=== PATIENT | female | born 1955 | race Caucasian/White ===

== ENCOUNTER 2019-07-25 08:46 | Outpatient (CLI) | payer MEDICARE, SELFPAY ==
--- NOTE | ~2019-07-25 | MM_ITS ---
EXAMINATION: MM screening [facility] BI w serene HISTORY: Screening mammogram TECHNIQUE: Craniocaudal and mediolateral oblique 3-D tomosynthesis images were obtained and synthetic 2-D images were generated. CAD analysis was submitted and interpreted. COMPARISON: 07/23/2018, 07/22/2017, 07/21/2016 BREAST PARENCHYMAL COMPOSITION: There are scattered areas of fibroglandular density. FINDINGS: There is no evidence of suspicious mass, calcification, or architectural distortion to sugg est malignancy in either breast. There has been no suspicious interval change. IMPRESSION: 1. No mammographic evidence of malignancy. 2. Recommend routine screening mammography in one year. BI-RADS Category 1: Negative Reviewed, dictated and finalized at location A. INSTRUCTOR
== END 2019-07-25 08:47 | disposition home or self-care (01) ==
LOC: ANHIMG 08:49
PROVIDERS: PCP Family Medicine; Visit Provider Family Medicine
DX: Z12.31 Encounter for screening mammogram for malignant neoplasm of breast (principal)
CPT/HCPCS: 77063; 77067

== ENCOUNTER 2020-07-27 08:35 | Outpatient (CLI) | payer MEDICARE, SELFPAY ==
--- NOTE | ~2020-07-27 | MM_ITS ---
EXAMINATION: MM screening [facility] w [facility] HISTORY: Screening TECHNIQUE: Craniocaudal and mediolateral oblique 3-D tomosynthesis images were obtained and synthetic 2-D images were generated. CAD analysis was submitted and interpreted. COMPARISON: Comparison to multiple prior studies sequentially, with oldest reviewed study dated 07/19. BREAST PARENCHYMAL COMPOSITION: There are scattered areas of fibroglandular density. FINDINGS: There are subtle asymmetries in the upper outer quadrant of the right breast. The left terri st is stable without evidence for malignancy. IMPRESSION: 1. Developing asymmetry upper outer quadrant of the right breast. 2. Additional mammographic views and possible breast ultrasound are recommended. BI-RADS Category 0: Incomplete: Needs additional imaging evaluation. Reviewed, dictated and finalized at location A. M SHOVEL ENGINEER IMPRESSION: 1. Developing asymmetry upper outer quadrant of the right breast. 2. Additional mammographic views and possible breast ultrasound are recommended . BI-RADS Category 0: Incomplete: Needs additional imaging evaluation.
== END 2020-07-27 08:36 | disposition home or self-care (01) ==
LOC: ANHIMG 08:39
PROVIDERS: PCP Physician Assistant; Visit Provider Family Medicine
DX: Z12.31 Encounter for screening mammogram for malignant neoplasm of breast (principal); Z78.0 Asymptomatic menopausal state
CPT/HCPCS: 77063; 77067

== ENCOUNTER 2020-08-13 13:15 | Outpatient (CLI) | payer MEDICARE, SELFPAY ==
--- NOTE | ~2020-08-13 | MMUS_ITS ---
EXAMINATION: MM diagnostic [facility] RT w serene, US breast RT limited HISTORY: Developing asymmetry reported in upper outer quadrant of right breast on July 27, 2020 s creening mammogram examination TECHNIQUE: Additional 3-D tomosynthesis images of the right breast were performed and synthetic 2-D i mages were generated. CAD analysis was submitted and interpreted. High resolution upper outer quadran t right breast ultrasound was performed. COMPARISON: July 27, 2020 bilateral digital screening mammogram FINDINGS: MAMMOGRAPHIC FINDINGS: No suspicious mass or architectural distortion or any skin thickening or retraction or malignant calc ification is identified. ULTRASOUND: No suspicious mass or shadowing is detected in the upper outer quadrant of the right breast. IMPRESSION: 1. No mammographic evidence of malignancy 2. Routine annual mammographic screening is recommended. BI-RADS Category 1: Negative Reviewed, dictated and finalized at location A. 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 No mammographic evidence of malignancy 2. Routine annual mammographic screening is recommended. BI-RADS Category 1: Negative
== END 2020-08-13 13:16 | disposition home or self-care (01) ==
LOC: ANHIMG 13:20
PROVIDERS: PCP Physician Assistant; Visit Provider Physician Assistant
DX: N63.11 Unspecified lump in the right breast, upper outer quadrant (principal)
CPT/HCPCS: 76642; 77061; 77065; G0279

== ENCOUNTER 2021-07-30 09:18 | Outpatient (CLI) | payer MEDICARE, SELFPAY ==
--- NOTE | ~2021-07-30 | MM_ITS ---
EXAMINATION: MM screening [facility] BI w [facility] HISTORY: Screening mammogram TECHNIQUE: Craniocaudal and mediolateral oblique 3-D tomosynthesis images were obtained and synthetic 2-D images were generated. CAD analysis was submitted and interpreted. COMPARISON: 08/13/2020 diagnostic right mammogram and limited right breast ultrasound 07/27/2020 bilateral screening mammogram 07/25/2019 bilateral screening mammogram BREAST PARENCHYMAL COMPOSITION: There are scattered areas of fibroglandular density. FINDINGS: There is no evidence of suspicious mass, calcification, or architectural distortion to sugg est malignancy in either breast. There has been no suspicious interval change. IMPRESSION: 1. No mammographic evidence of malignancy. 2. Recommend routine screening mammography in one year. BI-RADS Category 1: Negative Reviewed, dictated and finalized at location A. AGE PICK UP MAN
== END 2021-07-30 09:19 | disposition home or self-care (01) ==
LOC: ANHIMG 09:20
PROVIDERS: PCP Family Medicine; Visit Provider Family Medicine
DX: Z12.31 Encounter for screening mammogram for malignant neoplasm of breast (principal)
CPT/HCPCS: 77063; 77067

== ENCOUNTER 2022-10-13 07:58 | Outpatient (CLI) | payer MEDICARE, SELFPAY ==
--- NOTE | ~2022-10-13 | MM_ITS ---
EXAMINATION: MM screening [facility] BI w serene HISTORY: Screening mammogram TECHNIQUE: Craniocaudal and mediolateral oblique 3-D tomosynthesis images were obtained and synthetic 2-D images were generated. CAD analysis was submitted and interpreted. COMPARISON: 07/30/2021, 08/13/2020, 07/27/2020 BREAST PARENCHYMAL COMPOSITION: There are scattered areas of fibroglandular density. FINDINGS: No suspicious mass, calcification, or architectural distortion are identified in either gladys ast to suggest malignancy. There has been no suspicious interval change. IMPRESSION: 1. No mammographic evidence of malignancy. 2. Recommend routine screening mammography in one year. BI-RADS Category 1: Negative Reviewed, dictated and finalized at location A.
== END 2022-10-13 07:59 | disposition home or self-care (01) ==
PROVIDERS: PCP Family Medicine; Visit Provider Family Medicine
DX: Z12.31 Encounter for screening mammogram for malignant neoplasm of breast (principal)
CPT/HCPCS: 77063; 77067

== ENCOUNTER 2023-10-24 08:07 | Outpatient (CLI) | payer MEDICARE, SELFPAY ==
--- NOTE | ~2023-10-24 | MM_ITS ---
EXAMINATION: MM screening [facility] BI w serene HISTORY: Screening TECHNIQUE: Craniocaudal and mediolateral oblique 3-D tomosynthesis images were obtained and synthetic 2-D images were generated. CAD analysis was submitted and interpreted. COMPARISON: Comparison to multiple prior studies sequentially, with oldest reviewed study dated 07/23. BREAST PARENCHYMAL COMPOSITION: Not dense: There are scattered areas of fibroglandular density. FINDINGS: There is no evidence of suspicious mass, calcification, or architectural distortion to sugg est malignancy in either breast. There has been no suspicious interval change. IMPRESSION: 1. No mammographic evidence of malignancy. 2. Recommend routine screening mammography in one year. BI-RADS Category 1: Negative Reviewed, dictated and finalized at location A.
== END 2023-10-24 08:08 | disposition home or self-care (01) ==
PROVIDERS: PCP Family Medicine; Visit Provider Family Medicine
DX: Z12.31 Encounter for screening mammogram for malignant neoplasm of breast (principal)
CPT/HCPCS: 77063; 77067

== ENCOUNTER 2024-11-14 08:10 | Outpatient (CLI) | payer MEDICARE, SELFPAY ==
--- NOTE | ~2024-11-14 | MM_ITS ---
EXAMINATION: MM screening cortney BI w serene HISTORY: Screening TECHNIQUE: Craniocaudal and mediolateral oblique 3-D tomosynthesis images were obtained and synthetic 2-D images were generated. CAD analysis was submitted and interpreted. COMPARISON: Comparison to multiple prior studies sequentially, with oldest reviewed study dated 07/25. BREAST PARENCHYMAL COMPOSITION: Not dense: There are scattered areas of fibroglandular density. FINDINGS: There is no evidence of suspicious mass, calcification, or architectural distortion to sugg est malignancy in either breast. There has been no suspicious interval change. IMPRESSION: 1. No mammographic evidence of malignancy. 2. Recommend routine screening mammography in one year. BI-RADS Category 1: Negative Reviewed, dictated and finalized at location B.
--- OUTSIDE RECORDS SUMMARY | 2024-11-14 08:19 | XMS_ITS | Clinical Summary ---
Author Organization [facility] [place] [address] Address [address] [place] [address] Care Team Providers Care Wax Pot Tender Name Role Phone Heron Gutierrez MD Primary Care Provider [phone] Allergies Active Allergy Reactions Criticality Noted Date Comments Meperidine Shortness of breath High 06/11/2021 Fentanyl Shortness of breath,Redness High 06/11/19 22 Penicillins Rash,Blisters High 06/11/2021 Hydrocodone-Acetaminophen Itching,Halluc inations,Vomi ting Medium 06/11/2021 Medications calcium citrate/vitamin D3 (CITRACAL-D3 PETITES ORAL) Take 1 Caplet by mouth daily Active magnesium oxide 400 mg magnesium capsule Take 1 capsule by mouth daily Active citalopram (CeleXA) 10 mg tablet Take 1 tablet (10 mg total) by mouth daily 90 tablet 4 4 01/22/20 25 Active diphenhydrAMINE-vianney taminophen (acetaminophen PM) 25-500 mg tablet Take 2 tablets by mouth every evening Active CALCIUM CARB-VITAMIN D3-VIT K2 ORALIndications:Res tless Legs Take 1 tablet by mouth daily Vitamin K2 - 100mcg, Vitamin D3 - 25mcg (1,000IU), Calcium - 34mg Active hydroCHLOROthiazide 12.5 mg tablet TAKE 1 TABLET BY MOUTH EVERY DAY 90 tablet 4 5 Active telmisartan (MICARDIS) 40 mg tabletIndications:H ypertension, essential TAKE 1 TABLET BY MOUTH EVERY DAY 100 tablet 1 5 Active atorvastatin (LIPITOR) 10 mg tabletIndications:M ixed hyperlipidemia TAKE 1 TABLET BY MOUTH EVERY DAY 100 tablet 1 5 Active ergocalciferol (VITAMIN D) 50,000 unit capsuleIndications: Vitamin D deficiency TAKE 1 CAPSULE BY MOUTH ONE TIME PER WEEK 12 capsule 1 5 Active Active Problems Problem Noted Date Diagnosed Date Decreased GFR 05/26/2024 Assessment & Plan (05/26/2024 2:53 PM PRODUCT TEST ENGINEER): Patient reports she has been drinking a lot more Pepsi than she typically does, drinking very little water. Blood pressure is well controlled, she denies regular use of NSAIDs. GFR decreased some, creatinine = 1.19. Recommended increasing her intake soda. Plan to repeat lab work continue to monitor. Class 1 obesity due to exces s calories with serious comorbidity and body mass index (BMI) of 30.0 to 30.9 in adult 05/26/2024 Assessment & Plan (05/26/2024 2:53 PM PRODUCT TEST ENGINEER): Encouraged regular exercise and increase daily activity such as walking. Situational anxiety 01/22/2024 Assessment & Plan (05/26/2024 2:50 PM PRODUCT TEST ENGINEER): Patient reports significant benefit in moods with use of citalopram. Does not feel that dosage needs to be adjusted at this time. Unfortunately her close friend recently unexpectedly, patient feels she is managing well at this time. Will continue to monitor. Patient is aware to reach out with any concerns. Assessment & Plan (01/22/2024 10:12 AM CDT): Patient with significant stressors, dealing with brother's recent diagnosis of cancer. Feeling increased anxiety during the day and having a difficult time sleeping. Will start citalopram 10 daily, reviewed medication side effects and scheduling. Like to have patient follow-up in office in 12 weeks, can check back in the next 6 weeks if no response to medication. She denies any depressive symptoms. RLS (restless legs syndrome) 06/15/2023 Assessment & Plan (06/15/2023 10:12 AM PRODUCT TEST ENGINEER): Patient would like to try to avoid medications if possible. Recommended she increase exercise, discussed importance drinking plenty of water. Will trial magnesium supplement or [place] leg cramps supplement nightly. May benefit from increasing exercise and warm Epson salt baths as well. Discussed trying Requip if no improvement in the next 6 weeks or so Encounter for osteoporosis s creening in asymptomatic postmenopausal patient 06/15/2023 Assessment & Plan (06/15/2023 10:11 AM PRODUCT TEST ENGINEER): Reviewed previous DEXA completed 2018. Discussed calcium and vitamin-D recommendations with patient. DEXA ordered today, patient aware to call and schedule this. Herpes zoster without complication 05/14/2023 Assessment & Plan (05/14/2023 9:58 AM PRODUCT TEST ENGINEER): Healing. Discussed Shingrix vaccination in the future. Discussed RTC for any recurrent symptoms. She is agreeable and states understanding. Colonoscopy refused 01/08/2023 Assessment & Plan (01/22/2024 10:12 AM CDT): Declines screening Assessment & Plan (01/08/2023 5:44 PM CDT): States he has Cologuard at home as she is not interested in completing Cologuard or a screening colonoscopy. Osteopenia of multiple sites 06/12/2022 Assessment & Plan (06/12/2022 8:31 AM PRODUCT TEST ENGINEER): Prescribed prolia weekly for osteopenia. She frequently forgets to take this. Encounter for annual wellness exam in Medicare p atient 06/11/2021 Assessment & Plan (06/15/2023 10:13 AM PRODUCT TEST ENGINEER): Preventative exam, reviewed screenings and vaccinations. DEXA ordered today. Patient declines C scope. Assessment & Plan (06/12/2022 8:44 AM PRODUCT TEST ENGINEER): Preventive exam; reviewed recommended preventive screenings and vaccinations. Encourage annual flu vaccine. Wear sunscreen/protective clothing when outdoors. Assessment & Plan (06/11/2021 10:17 AM PRODUCT TEST ENGINEER): Will request records of mammogram, dexa, lung ct, and c-scope. Preventive exam; reviewed recommended preventive screenings and vaccinations. Encourage annual flu vaccine. Wear sunscreen/protective clothing when outdoors. Mixed hyperlipidemia 06/11/2021 Assessment & Plan (06/15/2023 10:13 AM PRODUCT TEST ENGINEER): Patient is taking atorvastatin 10 mg daily as prescribed, cholesterol is well controlled, no changes made today. Assessment & Plan (05/14/2023 9:57 AM PRODUCT TEST ENGINEER): Tolerating statin without side effects. Will have fasting lipid panel prior to next appointment. Assessment & Plan (01/08/2023 5:24 PM CDT): Continue atorvastatin 10 mg daily. Ordered labs today, will make additional changes as needed. Assessment & Plan (06/12/2022 8:32 AM PRODUCT TEST ENGINEER): Doing well on atorvastatin 10 mg daily. Will repeat labs and make adjustments as needed. Assessment & Plan (06/11/2021 10:13 AM PRODUCT TEST ENGINEER): Will check fasting labs. Taking atorvastatin 10 mg daily without change. Tobacco use 06/11/2021 Assessment & Plan (05/14/2023 9:57 AM PRODUCT TEST ENGINEER): Highly encouraged cutting back on tobacco use. Pre contemplative. Assessment & Plan (01/08/2023 5:23 PM CDT): Again encouraged complete cessation. Assessment & Plan (06/11/2021 10:15 AM PRODUCT TEST ENGINEER): Taking wellbutrin x 3 days, discussed plan to quit smoking such as decreasing daily amount smoked by 1 cigarette per week. Reviewed NRT options. Hypertension, essential 06/11/2021 Assessment & Plan (05/26/2024 2:50 PM PRODUCT TEST ENGINEER): Blood pressure is well controlled; continue present management with telmisartan 40 mg daily Assessment & Plan (01/22/2024 10:13 AM CDT): Reviewed home blood pressure readings/machine, blood pressure is generally well controlled with 2-3 elevated readings. Increase BP related to stress. No changes to current medication regimen. Continue telmisartan 40 mg daily and hydrochlorothiazide 12.5 mg daily. Continue to monitor. She denies any chest pain, headaches, shortness for breath or palpitations. Assessment & Plan (06/15/2023 10:12 AM PRODUCT TEST ENGINEER): Blood pressure is well controlled, patient states that she has been fatigued over the past few weeks and she is not sure this could be attributed to her hydrochlorothiazide which is new. She is also not been sleeping well with restless legs. Recommended continuing current regimen with telmisartan 40 mg daily and hydrochlorothiazide 12.5 mg daily and continuing to monitor for now. Assessment & Plan (05/14/2023 9:57 AM PRODUCT TEST ENGINEER): Normotensive today. Hold chlorthalidone. Continue telmisartan. Monitor blood pressure daily at home. She has follow-up in less than 1 month to re-evaluate. Red flags reviewed for the interim. She is agreeable with plan states understanding. Assessment & Plan (01/08/2023 5:43 PM CDT): Not at goal; discrepancy in patient's home BP cuff and manual blood pressure check today, patient plans to buy a new blood pressure cuff. Continue telmisartan 40 mg daily and will add chlorthalidone 12.5 mg tablet once daily. Reviewed blood pressure goal of systolic less than 130. Assessment & Plan (06/12/2022 8:14 AM PRODUCT TEST ENGINEER): Blood pressure well controlled on telmisartan, no changes made today. Assessment & Plan (06/11/2021 10:15 AM PRODUCT TEST ENGINEER): BP well controlled on current regimen, reviewed BP goal of <140/80. No changes at this time. Continue efforts to improve diet and exercise. Ingrown hair 06/11/2021 Assessment & Plan (06/11/2021 10:14 AM PRODUCT TEST ENGINEER): Advised warm moist compresses to area and apply thin layer of ointment TID. Avoid picking/popping area. Follow up if worsening redness/swelling/pain. Reviewed s/s of infection. BMI 29.0-29.9,adult 06/11/2021 Assessment & Plan (05/14/2023 9:57 AM PRODUCT TEST ENGINEER): Weight is stable. Assessment & Plan (01/08/2023 5:43 PM CDT): Discussed healthy diet and importance of regular physical activity. Assessment & Plan (06/12/2022 8:14 AM PRODUCT TEST ENGINEER): Discussed healthy diet and importance of regular physical activity. Assessment & Plan (06/11/2021 10:13 AM PRODUCT TEST ENGINEER): Discussed healthy diet and importance of regular physical activity. Refused influenza vaccine 06/11/2021 Refused pneumococcal vaccination 06/11/2021 Immunizations Immunization Administration Dates Next Due HPV, Unspecified 06/12/2022(Deferred: Patient Refused),03/08/2021(Deferred: Patient Refused) Influenza, Unspecified 05/26/2024(Deferr ed: Patient Refused),06/15/2023(Deferred: Patient Refused),05/14/2023(Deferred: Patient Refused),03/08/2023(Deferred: Patient Refused),02/06/2023(Deferred: Patient Refused),03/08/2022(Deferred: Patient Refused),03/08/2022(Deferred: Patient Refused),02/06/2022(Deferred: Patient Refused),06/11/2021(Deferred: Patient Refused),03/08/2021(Deferred: Patient Refused),03/08/2021(Deferred: Patient Refused) Pneumococcal Conjugate Pcv20 01/22/2024( Deferred: Patient Refused),05/14/2023(Deferred: Patient Refused) Surgical History Surgery Date Site/Laterality Comments CHOLECYSTECTOMY HYSTERECTOMY APPENDECTOMY Family History Medical History Relation Name Comments Lung cancer Brother 1 Hossein COD Neuroendocrine Tumor Brother 3 Jeremiah Lung cancer Father COD Leukemia Father's Brother 1 Jimmie Lung cancer Father's Brother 2 Alvaro No Known Problems Father's Sister 1 Amrita No Known Problems Father's Sister 2 Meseret No Known Problems Father's Sister 3 Maxine Diabetes Father's Sister 4 Rebeka No Known Problems Father's Sister 5 Elmie Heart attack Maternal Grandfather Heart failure Maternal Grandmother Dementia Mother Asbestosis Mother's Brother Cancer Mother's Brother Pancreatic cancer Paternal Grandfather Early Sister Murdered at 55 - 56 Bipolar disorder Son 1 Martínez Depression Son 1 Martínez Diabetes Son 1 Martínez No Known Problems Son 2 Rashard Relation Name Status Comments Brother 1 Hossein Brother 2 Hi Alive Brother 3 Jeremiah Alive Father Father's Brother 1 Jimmie Father's Brother 2 Alvaro Father's Sister 1 Amrita Father's Sister 2 Meseret Father's Sister 3 Maxine Father's Sister 4 Rebeka Father's Sister 5 Elmie Maternal Grandfather Maternal Grandmother Mother Mother's Brother Paternal Grandfather Paternal Grandmother Sister Son 1 Martínez Alive Son 2 Rashard Alive Social History Tobacco Use Types Packs/Day Years Used Date Smoking Tobacco: Every Day Cigarettes 0.5 46 Smokeless Tobacco: Never Tobacco Cessation:Ready to Q uit: Not Asked; Counseling Given: Not Answered AUDIT-C Answer Date Recorded Q1: How often do you have a drink containing alc ohol? 2-3 times a week 05/14/2023 Q2: How many drinks containi ng alcohol do you have on a typical day when you are drinking? 1 or 2 05/14/2023 Q3: How often do you have si x or more drinks on one occasion? Never 05/14/2023 PHQ-2 Answer Date Recorded PHQ-2 Total Score (If total score is 3 or more points, staff should administer the PHQ-9) 1 05/26/2024 Comments Unknown Sex and Gender Information Value Date Recorded Sex Assigned at Not on file Legal Sex Female 7:54 AM PRODUCT TEST ENGINEER Gender Identity Not on file Sexual Orientation Not on file Obstetrics History Last Filed Vital Signs Vital Sign Reading Time Taken Comments Blood Pressure 122/84 05/26/2024 12:40 PM PRODUCT TEST ENGINEER Pulse 58 05/26/2024 12:40 PM PRODUCT TEST ENGINEER Temperature 36.6 C (97.9 F) 05/26/2024 12:40 PM PRODUCT TEST ENGINEER Respiratory Rate 18 05/26/2024 12:40 PM PRODUCT TEST ENGINEER Oxygen Saturation 97% 05/26/2024 12:40 PM PRODUCT TEST ENGINEER Inhaled Oxygen Concentration - - Weight 81.6 kg (180 lb) 05/26/2024 12:40 PM PRODUCT TEST ENGINEER Height 163.7 cm (5' 4.45) 05/26/2024 12:[address] Body Mass Index 30.47 05/26/2024 12:40 PM PRODUCT TEST ENGINEER Plan of Treatment Health Maintenance Due Date Last Done Comments Colon Cancer Screening-Colonoscopy 1955 Hepatitis C Screening 1955 DTaP/Tdap/Td Vaccine (1 - Tdap) 1964 Hepatitis B Screening 1971 Pneumococcal vaccine 65+ (1 of 2 - PCV) 1972 Zoster Vaccine (1 of 2) 2003 Lung Cancer Screening 03/07/2020 03/07/2019 Covid-19 Vaccine (3 - 2023-2 5 season) 2024 12/10/2020, 11/19/2020 Well Visit 65+ 06/15/2024 06/15/2023, 10/2022, 06/11/2021 Breast Cancer Screening-Mammogram 10/23/2024 10/24/2023, 10/13/2022, 07/30/2021, Additional history exists Influenza Vaccine (Season Ended) 2025 Depression Screening 05/26/2025 05/26/2024, 06/15/2023, 01/08/2023, Additional history exists Fall Risk Assessment 05/26/2025 05/26/2024, 06/15/2023, 05/14/2023, Additional history exists Osteoporosis Screening-Bone Density Scan 07/06/2025 07/06/2023, 01/29/2019 Procedures Procedure Name Priority Date/Time Associated Diagnosis Comments SCREENING MAMMOGRAM Schedule Routine, Read Routine (OP Routine) 10/24/2023 DEXA AXIAL SKELETON BONE DENSITY 1 OR MORE SITES Schedule Routine, Read Routine (OP Routine) 07/06/2023 8:49 AM PRODUCT TEST ENGINEER Osteopenia of multiple sites HM LUNG CANCER SCREENING Routine 03/07/2019 from Last 3 Months or Most Recently Relevant to Health Maintenance Results * Screening Mammogram (10/24/2023) Anatomical Region Laterality Modality Breast N/A Mammography us Historical Provider MD GUSTAFSON MAMMO PROCEDURES Alyssia l Result * Dexa Axial Skeleton Bone Density 1 Or 2 Site (07/06/2023 8:49 AM PRODUCT TEST ENGINEER) Anatomical Region Laterality Modality Body N/A Other 07/06/2023 6:27 PM PRODUCT TEST ENGINEER Narrative 07/06/2023 6:28 PM PRODUCT TEST ENGINEER EXAM DESCRIPTION: DEXA AXIAL SKELETON BONE DENSITY 1 OR MORE SITES REASON FOR STUDY: 67 y/o year old F with given history of: post-menopausal osteoporosis prevention screening 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 REFERENCE: Bone mineral density: Normal (T-score above or = -1.0) Low bone mass (T-score between -1.0 and -2.5) replaces the previously used term osteopenia Osteoporosis (T-score = or below -2.5) Please see below follow up recommendations. Medical evaluation for secondary causes of low bone mineral density may be appropriate. FRAX is a World Health Organization validated fracture risk assessment tool that calculates a person's 10 year probability of a major osteoporosis related fracture and hip fracture. According to the National Osteoporosis Foundation guidelines, postmenopausal women and men age 50 or older with low bone mass and a 10 year probability of a major osteoporosis related fracture = or greater than 20% or a 10 year probability of a hip fracture = or greater than 3% should be considered for pharmacological treatment for the prevention of osteoporosis. For further information, including treatment recommendations, please refer to the 2019 ISCD Official Positions (http://www.iscd.org) and the NOF's Clinician's Guide to Prevention and Treatment of Osteoporosis (http://www.nof.org/professionals/clinical-guidelines) THIS IS AN ELECTRONICALLY VERIFIED FINAL REPORT 07/06/2023 6:28 PM - Electronically signed by Rajiv Monet M.D. 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 REFERENCE: Bone mineral density: Normal (T-score above or = -1.0) Low bone mass (T-score between -1.0 and -2.5) replaces thepreviously used term osteopenia Osteoporosis (T-score = or below -2.5) Please see below follow up recommendations. Medical evaluation forsecondary causes of low bone mineral density may be appropriate. FRAX is a World Health Organization validated fracture risk assessmenttool that calculates a person's 10 year probability of a major osteoporosisrelated fracture and hip fracture. According to the National OsteoporosisFoundation guidelines, postmenopausal women and men age 50 or older with low bonemass and a 10 year probability of a major osteoporosis related fracture = or greater than 20% or a 10 year probability of a hip fracture = or greaterthan 3% should be considered for pharmacological treatment for the preventionof osteoporosis. For further information, including treatment recommendations, please referto the 2019 ISCD Official Positions (http://www.iscd.org) and the NOF's Clinician's Guide to Prevention and Treatment of Osteoporosis (http://www.nof.org/professionals/clinical-guidelines) THIS IS AN ELECTRONICALLY VERIFIED FINAL REPORT 07/06/2023 6:28 PM - Electronically signed by Rajiv Monet M.D. MF: [email or web address] Report ID: [id number] Reading Location: [place] [address] Lisbeth Johnson NP IMG DXA PROCEDURES Final Re sult * LUNG CANCER SCREENING (03/07/2019) Historical Provider HEALTH MAINTENANCE Final Result from Last 3 Months or Most Recently Relevant to Health Maintenance Insurance MEDICARE ADVANTAGE [facility] MEDICARE Address: [facility] [address] [place] [address] [employer] MEDICARE ADVANTAGE Care Teams Wax Pot Tender Relationship Specialty Start Date End Date Heron Gutierrez MD [address] [place] [address] PCP - General Family Medicine 05/22/21
--- OUTSIDE RECORDS SUMMARY | 2024-11-14 08:19 | XMS_ITS | Encounter Summary ---
Author Organization [facility] Address [address] [facility] [place] [address] Care Team Providers Care Papeterie Table Assembler Name Role Phone Unavailable Primary Care Provider Unavailabl e Encounter Details Date Type Department Care Team (Late st Contact Info) Description 02/09/2018 Lab Requisition [facility] DermPath Lab [address] 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 Gender Identity Not on file Sexual Orientation Not on file documented as of this encounter Plan of Treatment Not on file documented as of this encounter Procedures Procedure Name Priority Date/Time Associated Diagnosis Comments DERMATOPATHOLOGY Routine 02/09/2018 12:0 0 AM CDT documented in this encounter Results * DERMATOPATHOLOGY (02/09/2018 12:00 AM CDT) Case Report Dermatopathology Report Case: [id number] Authorizing Provider: Darien Zamora MD Collected: 02/09/2018 12:00 AM Pathologist: Emily Child MD Received: 02/09/2018 12:32 PM Specimen: Skin, left lateral leg 8 3:34 PM CDT DERMATOPATHOLOGY LABORATORY Final Diagnosis Specimen A. SKIN, left lateral leg: ACTINIC KERATOSIS, ERODED, EXTENDING TO THE BASE OF THE SPECIMEN (L57.0) (see microscopic description and comment) STASIS DERMATITIS (L30.8) 8 3:34 PM CDT DERMATOPATHOLOGY LABORATORY at 1534 CDT Clinical History AK R/O BCC. 3:34 PM CDT DERMATOPATHOLOGY LABORATORY Gross Description Specimen A: Received is one formalin filled container labeled with the patient's name and designated left lateral leg. The specimen consists of a shave biopsy measuring [id number]. Jar 0. 3:34 PM CDT DERMATOPATHOLOGY LABORATORY Microscopic Description Specimen A. SKIN, left lateral leg: There is alternating orthokeratosis and parakeratosis. The epidermis is focally eroded. Along the undersurface of the epidermis, there are buds of atypical keratinocytes in a disorderly arrangement. This process extends to the base of the specimen.There is focal spongiosis. The dermis shows a sparse, perivascular lymphocytic infiltrate surrounding dilated, thick-walled vessels, which are increased in number. COMMENT: A squamous cell carcinoma cannot be ruled out. 3:34 PM CDT DERMATOPATHOLOGY LABORATORY Disclaimer An external and internal positive and negative controls are appropriate for the histochemical, immunohistochemical and immunofluorescence stain(s) in this case (if any), except where stated explicitly. The performance characteristics of the stain(s) cited in this report were developed and its performance characteristic determined by the Dermatopathology Laboratory at [facility]. These tests need not be, and therefore are not, approved by the [place] Food and Drug Administration. The tests are used for clinical purposes. Billing Codes Specimen Charges Stain Charges 63348 1 3:34 PM CDT DERMATOPATHOLOGY LABORATORY Embedded Images 3:34 PM CDT DERMATOPATHOLOGY LABORATORY Pathology/Cytolog y TISSUE SPECIMEN FROM SKIN / Unknown 02/09/2018 02/09/2018 12:32 PM CDT Darien Zamora MD LAB - PATHOLOGY/CYTOLOGY ORDERA BLES Final Result DERMATOPATHOLOGY LABORATORY [facility] - Department of Dermatology [facility] [facility] [place] [address], [facility] [place] [phone] documented in this encounter Visit Diagnoses Not on filedocumented in this encounter
--- OUTSIDE RECORDS SUMMARY | 2024-11-14 08:19 | XMS_ITS | Referral Summary ---
Author [place] [facility] [place] [address] Address [address] [place] [address] Care Team Providers Care Public Health Nutritionist Name Role Phone Heron Gutierrez MD Primary Care Provider [phone] Allergies Active Allergy Reactions Criticality Noted Date [...] 05/26/2024 Assessment & Plan (05/26/2024 2:53 PM PROMOTIONS ASSISTANT [employer]ET[employer]): Patient reports she has been drinking a [...] 05/26/2024 Assessment & Plan (05/26/2024 2:53 PM [employer]OMOTIONS ASSISTANT [employer]): Encouraged regular exercise and increase daily activity such as walking. Situational anxiety 01/22/2024 Assessment & Plan (05/26/2024 2:50 PM [employer]OMOTIONS ASSISTANT [employer]): Patient reports significant benefit in moods with [...] 06/15/2023 Assessment & Plan (06/15/2023 10:12 AM PROMOTIONS ASSISTANT [employer]ET[employer]): Patient would like to try to avoid medications if possible. Recommended she increase exercise, discussed importance drinking plenty of water. Will trial magnesium supplement or Percy leg cramps supplement nightly. May benefit from increasing exercise and warm Epson salt baths as well. Discussed trying Requip if no improvement in the next 6 weeks or so Encounter for osteoporosis s creening in asymptomatic postmenopausal patient 06/15/2023 Assessment & Plan (06/15/2023 10:11 AM PROMOTIONS ASSISTANT [employer]): Reviewed previous DEXA completed 2018. Discussed calcium and vitamin-D recommendations with patient. DEXA ordered today, patient aware to call and schedule this. Herpes zoster without complication 05/14/2023 Assessment & Plan (05/14/2023 9:58 AM PROMOTIONS ASSISTANT [employer]): Healing. Discussed Shingrix vaccination in the future. [...] 06/12/2022 Assessment & Plan (06/12/2022 8:31 AM [employer]OT[employer] ASSIST[employer]): Prescribed prolia weekly for osteopenia. She frequently forgets to take this. Encounter for annual wellness exam in Medicare p atient 06/11/2021 Assessment & Plan (06/15/2023 10:13 AM PROMOTIONS ASSISTANT [employer]ETING): Preventative exam, reviewed screenings and vaccinations. DEXA ordered today. Patient declines C scope. Assessment & Plan (06/12/2022 8:44 AM [employer]OMOTIONS ASSISTANT [employer] MARKETING): Preventive exam; reviewed recommended preventive screenings and vaccinations. Encourage annual flu vaccine. Wear sunscreen/protective clothing when outdoors. Assessment & Plan (06/11/2021 10:17 AM [employer]OTIONS ASSISTANT [employer]): Will request records of mammogram, dexa, lung ct, and c-scope. Preventive exam; reviewed recommended preventive screenings and vaccinations. Encourage annual flu vaccine. Wear sunscreen/protective clothing when outdoors. Mixed hyperlipidemia 06/11/2021 Assessment & Plan (06/15/2023 10:13 AM [employer]OMOT[employer] ASSIST[employer]): Patient is taking atorvastatin 10 mg daily as prescribed, cholesterol is well controlled, no changes made today. Assessment & Plan (05/14/2023 9:57 AM [employer] ASSIST[employer]): Tolerating statin without side effects. Will have fasting lipid panel prior to next appointment. Assessment & Plan (01/08/2023 5:24 PM CDT): Continue atorvastatin 10 mg daily. Ordered labs today, will make additional changes as needed. Assessment & Plan (06/12/2022 8:32 AM [employer]OMOTIONS ASSISTANT [employer]): Doing well on atorvastatin 10 mg daily. Will repeat labs and make adjustments as needed. Assessment & Plan (06/11/2021 10:13 AM [employer]OMOTIONS ASSISTANT [employer]ETING): Will check fasting labs. Taking atorvastatin 10 mg daily without change. Tobacco use 06/11/2021 Assessment & Plan (05/14/2023 9:57 AM PROMOTIONS ASSISTANT SAL[employer] MARKETING): Highly encouraged cutting back on tobacco use. Pre contemplative. Assessment & Plan (01/08/2023 5:23 PM CDT): Again encouraged complete cessation. Assessment & Plan (06/11/2021 10:15 AM [employer]OT[employer] ASSISTANT [employer]ETING): Taking wellbutrin x 3 days, discussed plan to quit smoking such as decreasing daily amount smoked by 1 cigarette per week. Reviewed NRT options. Hypertension, essential 06/11/2021 Assessment & Plan (05/26/2024 2:50 PM [employer] ASSIST[employer]): Blood pressure is well controlled; continue present [...] palpitations. Assessment & Plan (06/15/2023 10:12 AM [employer]OMOT[employer] ASSIST[employer]): Blood pressure is well controlled, patient states [...] now. Assessment & Plan (05/14/2023 9:57 AM [employer]OMOTIONS ASSISTANT [employer]): Normotensive today. Hold chlorthalidone. Continue telmisartan. Monitor [...] 130. Assessment & Plan (06/12/2022 8:14 AM [employer]OMOT[employer] ASSIST[employer]): Blood pressure well controlled on telmisartan, no changes made today. Assessment & Plan (06/11/2021 10:15 AM [employer]OT[employer] ASSIST[employer]): BP well controlled on current regimen, reviewed BP goal of <140/80. No changes at this time. Continue efforts to improve diet and exercise. Ingrown hair 06/11/2021 Assessment & Plan (06/11/2021 10:14 AM [employer]OMOT[employer] ASSISTANT [employer]ETING): Advised warm moist compresses to area and apply thin layer of ointment TID. Avoid picking/popping area. Follow up if worsening redness/swelling/pain. Reviewed s/s of infection. BMI 29.0-29.9,adult 06/11/2021 Assessment & Plan (05/14/2023 9:57 AM [employer] ASSIST[employer]): Weight is stable. Assessment & Plan (01/08/2023 5:43 PM CDT): Discussed healthy diet and importance of regular physical activity. Assessment & Plan (06/12/2022 8:14 AM [employer]OT[employer] ASSIST[employer]): Discussed healthy diet and importance of regular physical activity. Assessment & Plan (06/11/2021 10:13 AM [employer]OT[employer] ASSIST[employer]): Discussed healthy diet and importance of regular [...] Pcv20 01/22/2024( Deferred: Patient Refused),05/14/2023(Deferred: Patient Refused) Social History Tobacco Use Types Packs/Day Years [...] on file Legal Sex Female 7:54 AM [employer]OTIONS ASSIST[employer] Gender Identity Not on file Sexual Orientation Not on file Last Filed Vital Signs Vital Sign Reading Time Taken Comments Blood Pressure 122/84 05/26/2024 12:40 PM [employer] Pulse 58 05/26/2024 12:40 PM [employer] Temperature 36.6 C (97.9 F) 05/26/2024 12:40 PM [employer] Respiratory Rate 18 05/26/2024 12:40 PM [employer] ASS[employer] Oxygen Saturation 97% 05/26/2024 12:40 PM [employer] Inhaled Oxygen Concentration - - Weight 81.6 kg (180 lb) 05/26/2024 12:40 PM [employer] Height 163.7 cm (5' 4.45) 05/26/2024 12:[address] Body Mass Index 30.47 05/26/2024 12:40 PM [employer] ASS[employer] Plan of Treatment Not on file Procedures Procedure Name Priority Date/Time Associated Diagnosis Comments SCREENING MAMMOGRAM Schedule Routine, Read Routine (OP Routine) 10/24/2023 DEXA AXIAL SKELETON BONE DENSITY 1 OR MORE SITES Schedule Routine, Read Routine (OP Routine) 07/06/2023 8:49 AM [employer]OT[employer] ASSIST[employer] Osteopenia of multiple sites HM LUNG CANCER SCREENING Routine 03/07/2019 from Last 3 Months or Most Recently Relevant to Health Maintenance Results * Screening Mammogram (10/24/2023) Anatomical Region Laterality Modality Breast N/A Mammography us Historical Provider MD GUSTAFSON MAMMO PROCEDURES Alyssia l Result * Dexa Axial Skeleton Bone Density 1 Or 2 Site (07/06/2023 8:49 AM [employer]OMOTIONS ASSISTANT [employer]) Anatomical Region Laterality Modality Body N/A Other 07/06/2023 6:27 PM [employer] ASSIST[employer] Narrative 07/06/2023 6:28 PM [employer] EXAM DESCRIPTION: DEXA AXIAL SKELETON BONE DENSITY 1 OR MORE SITES REASON FOR STUDY: 67 y/o year old F with given history of: post-menopausal osteoporosis prevention screening [employer]/Model: [email or web address] SL (S/N [id number]) CLINICAL INFORMATION: Current height: 63.3 inches Maximum [...] Rajiv Monet M.D. MF: SEYMOUR Report ID: [id number] Reading Location: [id number] Procedure Note Rajiv Monet MD - 07/06/2023 EXAM DESCRIPTION: DEXA AXIAL SKELETON BONE DENSITY 1 OR MORE SITES REASON FOR STUDY: 67 y/o year old F with given history of: post-menopausal osteoporosis prevention screening [employer] President [employer]/Model: SOLEM Electronique (S/N [id number]) CLINICAL INFORMATION: Current height: 63.3 inches Maximum [...] Rajiv Monet M.D. MF: SEYMOUR Report ID: [id number] Reading Location: [place] [address] Lisbeth Johnson NP IMG DXA PROCEDURES Final Re sult * LUNG CANCER SCREENING (03/07/2019) Historical Provider HEALTH MAINTENANCE Final Result from Last 3 Months or Most Recently Relevant to Health Maintenance Insurance [id number] MEDICARE ADVANTAGE UHC MEDICARE ADVANTAGE Care Teams Public Health Nutritionist Relationship Specialty Start Date End [place] [address] PCP - General Family Medicine 05/22/21
--- OUTSIDE RECORDS SUMMARY | 2024-11-14 08:19 | XMS_ITS | Clinical Summary ---
Author Organization [facility] Address [address] [place] [address] Care Team Providers Care Regional Driver Name Role Phone Unavailable Primary Care Provider Unavailabl e Source Comments [facility],non-owned Affiliates and Associated Physician Practices is amultiple site organization consisting of ambulatory clinics and hospital sitesin [place], [place], [place] and [place]. This disclosure is being madepursuant to the Care Everywhere program and may not contain all information available regarding this patient. 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 Gender Identity Not on file Sexual Orientation Not on file Plan of Treatment Health Maintenance Due Date Last Done Comments BONE DENSITY TESTING 1955 COLOGUARD (AGES 45-75) - COL ON CA SCREENING 1953 COLON MONITORING 1953 COLONOSCOPY - COLON CA SCREENING 1953 CT COLONOGRAPHY - COLON CA SCREENING 1953 Colorectal Cancer Screening 1955 FIT - COLON CA SCREENING 1953 FLEX SIG - COLON CA SCREENING 1953 LIPID TESTING 1953 MAMMOGRAM 1953 HEPATITIS C SCREENING 07/15/1971 DTAP/TDAP/TD VACCINES (1 - Tdap) 1972 PNEUMOCOCCAL VACCINE 50+ (1 of 1 - PCV) 2003 ZOSTER VACCINE (1 of 2) 2003 COVID-19 VACCINE ( - 2023-2 5 season) 2024 DEPRESSION SCREENING 06/08/2024 INFLUENZA VACCINE (Season Ended) 2025 Respiratory Syncytial Virus (RSV) Vaccine Pt: or over 60 yrs (1 - 1-dose 75+ series) 2028 HEPATITIS B VACCINE Aged Out No longe r eligible based on patient's age to complete this topic HIB VACCINE Aged Out No longer eligi ble based on patient's age to complete this topic HPV VACCINE Aged Out No longer eligi ble based on patient's age to complete this topic MENINGOCOCCAL (Group B) VACC INE SHARED DECISION-MAKING Aged Out No longer eligibl e based on patient's age to complete this topic MENINGOCOCCAL GROUPS A/C/Y/W VACCINE Aged Out No longer eligible b ased on patient's age to complete this topic Insurance
== END 2024-11-14 08:11 | disposition home or self-care (01) ==
PROVIDERS: PCP Family Medicine; Visit Provider Family Medicine
DX: Z12.31 Encounter for screening mammogram for malignant neoplasm of breast (principal)
CPT/HCPCS: 77063; 77067